=== PATIENT | female | born 1970 | race Asian ===

== ENCOUNTER 2017-01-25 15:14 | Emergency (ER) | payer MEDICAID ==
[~2017-01-25] VITALS: Ht 160 cm; Wt 81.3 kg
[~2017-01-25 15:14] MED LIST: AMOX500T PO; CIPR500T87 PO; HYDR-3240 PO; META-23 PO; OMEP20CA9 PO; ONDA4TAB7 PO; [UNRECOGNIZED DRUG - OTHER] INH
[2017-01-25] MEDS ORDERED: SODIUM CHLORIDE FLUSH 10ML SYR IVF ONE (16:00)
[2017-01-25] MEDS ORDERED: KETOROLAC 30 MG/1 ML IVPush ONE (16:00)
[2017-01-25] MEDS ORDERED: DIPHENHYDRAMINE 50 MG/ML, 1ML IVPush ONE (16:00)
[2017-01-25] MEDS ORDERED: METOCLOPRAMIDE 5 MG/ML, 2ML IVPush ONE (16:00)
[2017-01-25] MEDS ORDERED: SODIUM CHLORIDE 0.9% 1,000ML IVBOLUS ONE (16:00)
[2017-01-25] MEDS ORDERED: KETOROLAC 30 MG/1 ML ONE (16:09)
[2017-01-25] MEDS ORDERED: DIPHENHYDRAMINE 50 MG/ML, 1ML ONE (16:09)
[2017-01-25] MEDS ORDERED: METOCLOPRAMIDE 5 MG/ML, 2ML ONE (16:09)
[2017-01-25 17:52] VITALS: BP 128/74
== END 2017-01-25 17:55 | disposition home or self-care (01) ==
LOC: ED 16:50
DX: R51 Headache (principal); G43.909 Migraine, unspecified, not intractable, without status migrainosus; K21.9 Gastro-esophageal reflux disease without esophagitis; M54.12 Radiculopathy, cervical region
CPT/HCPCS: 70450; 96361; 96374; 96375; 99285; J1200; J1885; J2765; J7030

== ENCOUNTER 2017-12-01 22:57 | Emergency (ER) | payer MEDICAID ==
[~2017-12-01] VITALS: Ht 167.6 cm; Wt 85.0 kg
[2017-12-01] MEDS ORDERED: DIPHENHYDRAMINE 50 MG CAPSULE PO STA (23:22)
[2017-12-01] MEDS ORDERED: DIPHENHYDRAMINE 50 MG CAPSULE ONE (23:24)
[2017-12-01] MEDS ORDERED: FAMOTIDINE 20 MG TABLET ONE (23:24)
[2017-12-01] MEDS ORDERED: FAMOTIDINE 20 MG TABLET PO ONE (23:30)
[2017-12-02 00:06] VITALS: BP 124/68
== END 2017-12-02 00:10 | disposition home or self-care (01) ==
LOC: ED 12-02 00:04
DX: L50.0 Allergic urticaria (principal); G43.909 Migraine, unspecified, not intractable, without status migrainosus; F17.210 Nicotine dependence, cigarettes, uncomplicated
CPT/HCPCS: 99284; 99406; J7512